=== PATIENT | female | born 1935 | race Caucasian/White ===

== ENCOUNTER 2019-03-25 20:24 | Emergency (ER) | payer MEDICARE, OTHER ==
--- NOTE | 2019-03-25 20:26 | ER Report ---
History and Physical Time Seen By MD: 20:22 HPI/ROS CHIEF COMPLAINT: Fall HISTORY OF PRESENT ILLNESS: Patient is an 83-year-old female who was coming out of an IV bathroom and slipped and fell and hit the back of her head and now has bruising contusion to the area. Patient has a history of prior pulmonary embolism and had been on Cymbalta for many years but that was discontinued about a year ago because patient would have frequent falls. She is on an aspirin a day. Patient has problems with his speech and has some dementia. REVIEW OF SYSTEMS: Constitutional: No fever, no chills. Eyes: No discharge. ENT: No sore throat. Cardiovascular: No chest pain, no palpitations. Respiratory: No cough, no shortness of breath. Gastrointestinal: No abdominal pain, no vomiting. Genitourinary: No hematuria. Musculoskeletal: No back pain. No neck pain Skin: No rashes. Neurological: Mild headache Allergies: Coded Allergies: No Known Drug Allergies (Unverified , 03/25/19) Home Meds Reported Medications Lutein (LUTEIN) 1 Gm Beads, 1 GM MC 03/25/19 Sertraline Hcl (SERTRALINE HCL) 100 Mg Tablet, 1 TAB PO QDAY, TAB 03/25/19 Losartan Potassium (LOSARTAN POTASSIUM) 25 Mg Tablet, 25 MG PO QDAY 03/25/19 Past Medical/Surgical History Past medical history for pulmonary embolism., Dementia, asthma, hypercholesterolemia, hypertension Constitutional Vital Sign - Last 24 Hours 03/25/19 03/25/19 20:32 21:16 Temp 98.9 Pulse 73 70 Resp 20 B/P (MAP) 185/94 166/96 (119) Pulse Ox 88 96 O2 Delivery Room Air Physical Exam General Appearance: The patient is alert, has no immediate need for airway protection and no signs of toxicity. Eyes: Pupils equal and round no pallor or injection. ENT, Mouth: Mucous membranes are moist. Respiratory: There are no retractions, lungs are clear to auscultation. Cardiovascular: Regular rate and rhythm. Gastrointestinal: Abdomen is soft and non tender, no masses, bowel sounds normal. Neurological: Awake alert, some confusion which apparently is baseline Skin: Warm and dry, no rashes. Musculoskeletal: Neck is supple non tender. Extremities are nontender, nonswollen and have full range of motion. Medical Decision Making EKG/Imaging Imaging FACILITY: [facility] - [place] PATIENT NAME: Rosy Esparza : 1935 MR: [id number] V: [id number] EXAM DATE: ORDERING PHYSICIAN: JAYNE GAXIOLA TECHNOLOGIST: Location: [facility] [place] Patient: Rosy Esparza : 1935 Visit/Account:[id number] Date of Sevice: 03/25/2019 EXAMINATION: CT head without IV contrast HISTORY: Fall. Loss of balance. TECHNIQUE: Axial CT images of the head were obtained from the vertex to the skull base without IV contrast, with coronal and sagittal 2D reconstructed images. One of the following dose optimization techniques was utilized in the performance of this exam: Automated exposure control; adjustment of the mA and/or kV according to the patient's size; or use of an iterative reconstruction technique. Specific details can be referenced in the facility's radiology CT exam operational policy. COMPARISON: None. FINDINGS: Mild generalized parenchymal atrophy with mild patchy low attenuation in the deep white matter compatible with chronic small vessel ischemic change. No CT evidence of intracranial hemorrhage, mass lesion, or acute infarct. No midline shift or extra-axial fluid collections. Meneses-white differentiation is maintained. Soft tissue swelling overlies the posterior left parieto-occipital calvarium. No underlying skull fracture. The calvarium is intact. The partially visualized paranasal sinuses and mastoid air cells are unopacified. IMPRESSION: 1. No evidence of intracranial hemorrhage or skull fracture. 2. Posterior soft tissue swelling. 3. Mild parenchymal atrophy with chronic small vessel ischemic change. Report Dictated By: Cas Parra MD at 03/25/2019 9:09 PM Report E-Signed By: Cas Parra MD at 03/25/2019 9:16 PM [email or web address] ED Course/Re-evaluation ED Course plan at this time will be CT of head Decision to Disposition Date: Mar 25, 2019 Decision to Disposition Time: 21:29 Depart Departure Latest Vital Signs Vital Signs Date Time Temp Pulse Resp B/P (MAP) Pulse Ox O2 Delivery O2 Flow Rate FiO2 03/25/19 21:16 70 166/96 (119) 96 03/25/19 20:32 98.9 20 Room Air Impression: Primary Impression: Contusion Condition: Improved Disposition: HOME OR SELF-CARE Patient Instructions: Contusion in Adults (DC) Problem Qualifiers Primary Impression: Contusion Encounter type: initial encounter Contusion area: head Contusion of head detail: scalp Qualified Codes: S00.03XA - Contusion of scalp, initial encounter JAYNE GAXIOLA MD Mar 25, 2019 20:26
[2019-03-25] MEDS ORDERED: SERT-181 PO (20:39)
[2019-03-25] MEDS ORDERED: LOSA25TA57 PO (20:39)
[2019-03-25] MEDS ORDERED: LUTE1BEA MC (20:39)
[2019-03-25 21:16] VITALS: BP 166/96
--- NOTE | 2019-03-25 21:25 | RADIOLOGY IMAGING REPORT ---
FACILITY: [facility] PATIENT NAME: Rosy Esparza : 1935 MR: [id number] V: [id number] EXAM DATE: ORDERING PHYSICIAN: JAYNE GAXIOLA TECHNOLOGIST: Location: [facility] Patient: Rosy Esparza : 1935 Visit/Account:[id number] Date of Sevice: 03/25/2019 EXAMINATION: CT head without IV contrast HISTORY: Fall. Loss of balance. TECHNIQUE: Axial CT images of the head were obtained from the vertex to the skull base without IV c ontrast, with coronal and sagittal 2D reconstructed images. One of the following dose optimization techniques was utilized in the performance of this exam: Autom ated exposure control; adjustment of the mA and/or kV according to the patient's size; or use of an i terative reconstruction technique. Specific details can be referenced in the facility's radiology C T exam operational policy. COMPARISON: None. FINDINGS: Mild generalized parenchymal atrophy with mild patchy low attenuation in the deep white matter compat ible with chronic small vessel ischemic change. No CT evidence of intracranial hemorrhage, mass lesion, or acute infarct. No midline shift or extra-a xial fluid collections. Meneses-white differentiation is maintained. Soft tissue swelling overlies the posterior left parieto-occipital calvarium. No underlying skull fr acture. The calvarium is intact. The partially visualized paranasal sinuses and mastoid air cells ar e unopacified. IMPRESSION: 1. No evidence of intracranial hemorrhage or skull fracture. 2. Posterior soft tissue swelling. 3. Mild parenchymal atrophy with chronic small vessel ischemic change. Report Dictated By: Cas Parra MD at 03/25/2019 9:09 PM Report E-Signed By: Cas Parra MD at 03/25/2019 9:16 PM [email or web address]
== END 2019-03-25 21:48 | disposition home or self-care (01) ==
LOC: ER 20:42
DX: S00.93XA Contusion of unspecified part of head, initial encounter (principal)
CPT/HCPCS: 70450; 99284